=== PATIENT | female | born 1960 | race Caucasian/White ===

== ENCOUNTER → 2020-11-27 08:43 | Outpatient (CLI) | payer OTHER, SELFPAY ==
[2020-11-27 11:59] LABS: COVID19 -Nasal RAPID Negative (Negative)
== END ==
PROVIDERS: PCP Family Medicine; Visit Provider Physician Assistant
DX: Z20.822 Contact with and (suspected) exposure to COVID-19 (principal); Z01.812 Encounter for preprocedural laboratory examination
CPT/HCPCS: 87635

== ENCOUNTER 2020-11-29 06:11 | Inpatient (IN) | payer OTHER, SELFPAY ==
[2020-11-29] VITALS (18 sets, daily range): BP systolic 120–172; BP diastolic 68–94; PULSE 79–100; RESP 11–17; TEMP 36.3–37.4; O2SAT 90–100; BMI 40.3
[2020-11-29] MEDS: LACTATED RINGERS 1,000 ML 42 ML IV ×2 (07:20→09:12)
--- NOTE | 2020-11-29 07:39 | PM.PREOP ---
Pre-operative Note COVID-19 COVID-19 status: Negative Result date/Date tested (Pos, Neg/Pending): 11/27/20 Interval Note History & Physical reviewed/Exam performed by Physician: Yes Changes to H&P: No
[2020-11-29] MEDS: CEFAZOLIN 1 GM VIAL 2 GM IV ×3 (07:58→23:41)
--- NOTE | 2020-11-29 08:23 | SUR.OPER ---
Prone on spine table, head in foam head support, padded chest and pelvic supports, gel pad at knees, lower legs supported by pillows; nipples, genitalia and toes free of pressure, arms secured on foam padded arm boards at <90 degrees abduction. Tape over blanket at thigh secured to table.
[2020-11-29] MEDS: BUPIVACAINE 0.25% W/ EPI 30 ML VIAL INJ (08:33)
[2020-11-29] MEDS: BUPIVACAINE LIPOSOME 266 MG/20 ML VIAL INJ (08:34)
--- NOTE | 2020-11-29 11:08 | PC.NURSE ---
Day shift: Pt not on AC unit at this time.
--- NOTE | 2020-11-29 12:06 | DI.RAD.S_ITS ---
PROCEDURE: XR LUMBAR SPINE 2-3V INDICATIONS: L4-5, L5-S1 TLIF TECHNIQUE: 2 intraoperative fluoroscopic views of the lumbar spine were acquired. COMPARISON: None. FINDINGS: Intraoperative fluoroscopic images of lower lumbar spine shows transpedicular fusion at L4 through S1 levels with intervertebral spacer placement at L4-5 and L5-S1 levels. IMPRESSION: Fluoro guidance was provided intraoperatively for posterior fusion at L4 through S1 levels. Dictated by: Mario Barroso M.D. on 11/29/2020 at 13:37 Approved by: Mario Barroso M.D. on 11/29/2020 at 13:47
--- NOTE | 2020-11-29 12:24 | PM.OP.1 ---
Operative Date/Time/Diagnoses Date of procedure: 11/29/20 Time of procedure: 08:02 Pre-op diagnosis: 1. Hx of L4-5, L5-S1 laminectomy with residual spinal stenosis. 2. Lumbar spondylolisthesis 3. Spinal stenosis with neurogenic claudication Post-op diagnosis: same Procedure & Clinicians Procedure: 1. L4-5, L5-S1 Postero-lateral and posterior interbody fusion 2. L4-5, L5-S1 interbody cage placement. 3. L4-5, L5-S1 decompressive laminectomy with bilateral facetecomies 4. L4-5, L5-S1 Posterior segmental instrumentation 5. [place] of bone marrow from iliac crest 6. Utilization of microsurgical technique and operating microscope Same procedure as scheduled: Yes Indications: Patient has been having chronic back pain and worsening lumbar radiculopathy. Patient had previous laminectomy with worsening lower extremity pain weakness and numbness as well as back pain. Patient failed multiple conservative management with worsening pain weakness and numbness in her lower extremity. Patient has been having difficulty performing activity of daily living. After discussing risks benefits of treatment options, patient elected proceed with surgery. Surgeon: Hermila Sanchez Liquor Establishment Manager: Yanick Ryan Click Yes if Unassisted: No Anesthesia Type: General Operative Notes Closure Type: primary Specimen(s): none sent Prosthetic devices, grafts, tissues, transplants, or devices: Globus revolve screws, Rise cages Applied: catheter Estimated Blood Loss (mL): 100 Blood products transfused: none Procedure in detail: Patient was seen in the preoperative area. Risks and benefits of the surgery was discussed with the patient. Informed consent was obtained from the patient and placed in the chart. Surgical site was marked. Patient was taken to the operative room. General anesthesia was administered. Prophylactic antibiotic was given to the patient less than 30 min before the incision was made. Patient was placed into a prone position on the Randall table. Patient's back was then prepped and draped in the sterile fashion. Time-out was performed at this time. Using AP and lateral C-arm imaging the interval between L4-S1 was identified and marked on patient's back. A 2 inch incision 2 in from midline was made on the left side first. The fascia was incised in line with skin incision. Globus MARS retractors was placed inside the incision and docked onto the L4 and L5 lamina. Using microsurgical technique and operating microscope, a L4 and L5 laminectomy and L4-5 L5-S1 facetectomy was performed using a Kerrison rongeur. During the process of decompression more than 75% of bilateral L4-5 L5-S1 facets were removed in order to decompress the spinal canal and the lateral recess. The L4-5 L5-S1 level was grossly unstable after the decompression was completed and requiring the fusion procedure. Patient was also found to have an excellent amount of epidural scarring from previous laminectomy site. Decompression was performed in order to decompress the neurologic structures at both L4-5 L5-S1 level. The disc space at L4-5, L5-S1 was identified. And a total diskectomy was performed at L4-5, L5-S1 level. The endplates were decorticated using a rasp and shaver. The total diskectomy and decortication was performed at L4-5, L5-S1 level in order to to accomplish a L4-5, L5-S1 fusion. The local bone from the laminectomy and facetectomy was saved for local bone grafting. After the total diskectomy and decortication was completed, Trifecta bone graft material was combined with local bone that was harvested earlier. At this time, a separate skin is incision was made over the iliac crest. A Jamshidi needle was inserted into the iliac crest through a separate skin incision. 5 cc of bone marrow aspiration was obtained through the separate skin incision using a Jamshidi needle from the iliac crest. The bone marrow aspiration was combined with local bone and the Trifecta bone grafting material. The bone grafting material was placed into the L4-5, L5-S1 interbody space along with two cages, one expandable cage at each level. The cages were expanded to their maximum height using the torque limiting screwdriver. At this time a mirror image incision was made on the right side. The fascia was incised in line with the skin incision. Globus MARS retractor was inserted and docked onto the L4-5, L5-S1 posterolateral gutter. Using the power drill, posterior-lateral decortication was performed at L4-5, L5-S1 level until bleeding cortical bone was identified. The remaining bone grafting material was placed into the L4-5 L5-S1 posterior lateral gutter he order to accomplish posterolateral fusion at the L4-5 L5-S1 levels. Using the double C-arm technique, pedicle screws were placed into the L4, L5, S1 pedicles bilaterally. This was done by placing the Jamshidi needle into the pedicles, then placing the guidewires over the Jamshidi needle, and finally placing the cannulated screws over the guidewires bilaterally. After the pedicle screws were placed, 2 titanium rods was locked into the heads of the pedicle screws using locking caps and torque limiting screwdriver. Total 6 pedicles screws were placed. After all the hardware was placed, and confirmed with AP and lateral C-arm imaging, the wound was then irrigated with sterile normal saline and packed with Ray-Joyce gauze for 3 min to accomplish hemostasis. After the gauze was removed the deep fascia was closed with #1 Vicryl suture. The subcutaneous layer was closed with 2-0 Vicryl. The skin was closed with skin caitlyn. Patient tolerated the procedure well. There were no complications. Complications: none Post-operative Condition: stable Disposition: PACU Plan for aftercare: Admit to inpatient hospital
[2020-11-29] MEDS: OXYCODONE/ACETAMINOPHEN 5/325 TABLET 1 TAB PO ×2 (12:45→13:15)
[2020-11-29] MEDS: fentaNYL 100 MCG/2 ML INJ IV (12:50)
[2020-11-29] MEDS: HYDROMORPHONE 2 MG INJ IV ×2 (12:57→13:20)
--- NOTE | 2020-11-29 13:27 | SUR.PHASEI ---
Called Ulisses [phone] with pt update and room assignment. Ulisses was very pleasant and grateful. States he is one hour away but will visit pt in 203 when he arrives.
--- NOTE | 2020-11-29 14:03 | PC.NURSE ---
Day shift: Pt on AC unit from PACU at approx 1355. She is A&Ox4. VS WNL. 2L NC 95%. Reports back pain 02/22. CMS intact. Good cap refill and PPP. Oriented to room and call light. Back dressing is CDI. Agrees to not get OOB w/o help from staff. Will medicate for pain per MAR at this time. Bed alarm is on and call light in reach. Will continue w/ plan of care.
[2020-11-29] MEDS: hydrOXYzine pamoate 25 MG CAPSULE PO (14:13)
[2020-11-29] MEDS: OXYCODONE IR 5 MG TABLET 10 MG PO ×2 (14:13→20:45)
[2020-11-29] MEDS: SODIUM CHLORIDE 0.9% 1,000 ML 100 ML IV (14:27)
[2020-11-29] MEDS: HYDROMORPHONE 0.5 MG INJ IV (14:36)
--- NOTE | 2020-11-29 16:54 | PT.IIE ---
Current Diagnoses Spondylolisthesis, lumbar region (11/29/20) Spinal stenosis, lumbar region with neurogenic claudication (11/29/20) Postlaminectomy syndrome, not elsewhere classified (11/29/20) Surgery Performed Operation Date: 11/29/20 07:45 Actual Procedures p L4-5, L5-S1 TLIF w/posterior instrumentation(Not Applicable) - Hermila Sanchez MD Physical Therapy Inpatient Evaluation/Re-Eval M1 PT/OT-IP Prior Functional Status Start: 11/29/20 16:14 Freq: NEEDED Status: Active Protocol: Document 11/29/20 16:54 AW (Rec: 11/29/20 17:20 AW [id number]) Medical Review Prior Functional Status Medical History Reviewed Yes Communication WNL. Pt is an effective verbal communicator. Mobility and Gait Independent without AD. Pt spends long hours on her feet at work. It hurts whether I move or not so I just move. Activities of Daily Living and IADL's Independent. Pt lives with her friend, Ulisses. They share housework. Both drive. Social History Household Members friend(s) Living Arrangements House Number of Floors (Floors) One Floor Number of Stairs To Enter/Railing? 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 She lives in [place] with her friend, Ulisses, who will be available and able to assist as needed. M2 PT-IP Current Condition Start: 11/29/20 16:14 Freq: NEEDED Status: Active Protocol: Document 11/29/20 16:54 AW (Rec: 11/29/20 17:20 AW [id number]) Physical Therapy Current Condition Current Condition Evaluation Date 11/29/20 Treatment Diagnosis s/p L4-S1 TLIF; difficulty in walking Onset Date 11/29/20 Precautions Lumbar Precautions Log Roll,No Twisting,Limit Bending,Lifting Restriction of 10 lbs,Gait Belt above Incisional Area M3 PT-IP Subjective Start: 11/29/20 16:14 Freq: NEEDED Status: Active Protocol: Document 11/29/20 16:54 AW (Rec: 11/29/20 17:20 AW [id number]) Subjective Physical Therapy Visit Type Type Initial Evaluation Visit Start Time 16:30 Visit Stop Time 16:54 Total Visit Minutes 24 Notes Pt's friend, Ulisses, was present throughout Physical Therapy Visit Comments Patient Comments Pt is willing to participate with PT Patient Goals Return to work in 8 weeks Therapy Pain Assessment Pain When Pain Assessed During Mobility Pain Present Pain Present Pain Reported Location low back Intensity 2 Scale Used Numeric (0 - 10) Pain Management Techniques Re-positioning,Timing of Activity with Medications M4 PT-IP Mobility and Gait Start: 11/29/20 16:14 Freq: NEEDED Status: Active Protocol: Document 11/29/20 16:54 AW (Rec: 11/29/20 17:20 AW [id number]) PT-Bed Mobility Assessment Rolling Type of Rolling Log Rolling,Roll to Left Level of Assist Minimal Assistance,1 Person Assistance Supine to Sit Supine to Sit Maximum Assistance,1 Person Assistance Scooting Scooting to Edge of Bed Standby Assistance PT-Transfer Assessment Sit to and From Stand Sit to and from Stand Minimal Assistance,1 Person Assistance,Use of Upper Extremities Equipment Transfer Assistive Device Gait Belt,Front Wheeled Walker Orthotic/Prosthetic Devices or Brace: No Transfers Transfer Destination Chair Transfer Technique Stand Step Pivot Transfer Ability Level of Assist Contact Guard Assistance Comments Mobility Comments Pt was sitting up in bed as PT arrived. BP 155/85 HR 96 SpO2 96% on 1L/min. Pt log rolled to her right side min assist and transitioned from SL to sit max assist. She scooted to EOB and sat without complaint . She stood from the bed min assist and was able to ambulate slowly around the bed to the chair ~15 feet with FWW CGA. She transferred to the chair CGA and then stood from the chair min A x 1 before sitting one last time. She was left with INDUSTRIAL MANUFACTURING TECHNICIAN attening . BP was 151/77 HR 95 SpO2 91% on room air. Gait Assessment Gait Gait Assistance Required: Contact Guard Assist Distance (Feet) 15 Assistive Devices Assistive Device Gait Belt,Front Wheeled Walker Orthotic/Prosthetic Devices or Brace: No Gait Deviations General Gait Pattern Antalgic,Decreased Stride Length,Decreased Feet Clearance,Flexed Trunk,Step-to Gait Factors Limiting Gait Function Factors Limiting Gait Function Decreased Activity Tolerance, Decreased Sensation,Decreased Strength,Limited Range of Motion,Pain,Poor Balance Comments Gait Comments Pt had mild difficulty advancing the LLE but managed with no more than CGA and cues for weight shifting. Stair Climbing Assessment Comments Stair Climbing Comments Not assessed. PT-Balance Assessment Sitting Balance and Reactions Static Sitting Balance Ability Good Dynamic Sitting Balance Ability Good Standing Balance and Reactions Static Standing Balance Ability Good Dynamic Standing Balance Ability Fair Device Used FWW M5 PT-IP Objective Assessments Start: 11/29/20 16:14 Freq: NEEDED Status: Active Protocol: Document 11/29/20 16:54 AW (Rec: 11/29/20 17:20 AW [id number]) Orientation Orientation/Cognition Level of Alertness Alert Orientation Name,Day of Week,Place, Situation Language Function Ability No Deficits Noted Safety Awareness Understands Safety Issues Memory Description No Deficits Noted Comments Pt able to recall 3/3 precautions without prompts. Gross Range of Motion Lower Extremity ROM Assessment Within Functional Limits Strength Lower Extremity Strength Assessment Bilaterally Impaired Comments Strength Comments RLE 4/5 LLE 4-/5 Sensation Assessment Sensation Gross Sensation Right LE Impaired,Left LE Impaired Light Touch Impaired Sensation Description Numbness Comments Sensation Comments Pt reported numb anterior right thigh and dull light touch sensation on dorsal surfaces of both feet. Muscle Tone Muscle Tone WNL Yes M6 PT-IP Treatment Start: 11/29/20 16:14 Freq: NEEDED Status: Active Protocol: Document 11/29/20 16:54 AW (Rec: 11/29/20 17:20 AW [id number]) Physical Therapy Treatment Education Education Provided Precautions,Weight Bearing Status,Post-Op Packet,Safety Other Treatments Other Treatment Performed Educated pt on PT plan of care , weightbearing status, post op precautions, and rationale for selection of an assistive device. M7 PT-IP Assessment and Plan Start: 11/29/20 16:14 Freq: NEEDED Status: Active Protocol: Document 11/29/20 16:54 AW (Rec: 11/29/20 17:20 AW [id number]) PT Summary Assessment and Plan Potential Rehabilitation Potential Good Status of Condition at Evaluation Evolving Summary Impairments Pain,ROM,Strength,Balance, Sensation,Bed Mobility, Transfers,Gait,Activity Tolerance Assessment Summary Edel is a 60 yo woman seen for PT evaluation on POD0 following L4-S1 TLIF. She is independent in all regards at baseline. 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 On evaluation, pt required up to max assist with bed mobility, min assist for sit to stand, and CGA for ambulation with FWW and transfers. PT anticipates she will progress during her stay and be safe to discharge home with assist once medically cleared. Pt will need to clear stairs prior to discharge. Goals Bed Mobility Goal Standby Assistance Transfer Goal Standby Assistance,Front Wheeled Walker Gait Goal Standby Assistance,Front Wheel Walker Gait Distance 100 Other Goals - up/down 2 steps with L rail ascending SBA LTG: improve ambulation to 100 feet without AD SBA Days to Meet Goals 5 Frequency of Treatment Frequency Of Treatment Twice a Day Treatment Plan Physical Therapy Treatment Plan Bed Mobility Training,Transfer Training,Gait Training, Therapeutic Exercise,Balance Retraining,Post Op Education, Discharge Planning,Hot or Cold Pack,Neuromuscular Re-ed Other Recommendations and Next Treatment review precautions; progress Focus gait with FWW; stairs when able Precautions Lumbar Precautions Log Roll,No Twisting,Limit Bending,Lifting Restriction of 10 lbs,Gait Belt above Incisional Area Recommendations To Nursing Amount of Assist Needed 1 Person Assist Discharge Recommendations PT Discharge Recommendations Home with Assistance Equipment Needed for Home Before may need FWW Discharge Transportation Needs at Discharge Private Vehicle
--- NOTE | 2020-11-29 17:52 | PC.NURSE ---
Addendum entered by Mely Houston R.N. 11/29/20 21:42: Vertical incision on either side of midline, both dressings saturated with serosanguinous drainage. Dressings removed. Incisions stapled, noted to be approximated, pink. Some peripheral bruising. Alevyn (non-adherent, border) dressings applied x2. Patient tolerated well. Original Note: Report received, care assumed 1530. A&Ox3. Pain 10/23, reports this is tolerable. Denies nausea, verbalizes that she's hungry. Rainey catheter, not yet OOB post-op. Pt. up in chair after working with PT. Pain still under control. Oxygen sats 89-91% on RA. Placed back on 1LNC.
[2020-11-29] MEDS: SENNOSIDES 8.6 MG TABLET 17.2 MG PO (20:33)
[2020-11-29] MEDS: ATORVASTATIN 20 MG TABLET 10 MG PO (20:33)
[2020-11-29] MEDS: DOCUSATE 100 MG CAPSULE PO (20:33)
[2020-11-29] MEDS: TRAZODONE 50 MG TABLET PO (20:38)
[2020-11-29] MEDS: ACETAMINOPHEN 325 MG TABLET 650 MG PO (23:50)
--- NOTE | 2020-11-30 00:51 | PC.NURSE ---
Patient resting in bed, states pain is tolerable at 4/10, IV NS discontinued at 0040 since patient is drinking fluids. Patient states she has some numbness in Left thigh and chen.
[2020-11-30] MEDS: OXYCODONE IR 5 MG TABLET 10 MG PO ×6 (03:07→23:49)
[2020-11-30 03:08] VITALS: BP 128/54; PULSE 87; RESP 16; TEMP 36.6; O2SAT 93
[2020-11-30] MEDS: PANTOPRAZOLE DR 20 MG TABLET PO (05:38)
--- NOTE | 2020-11-30 07:24 | P.PN_ITS ---
Subjective Subjective Date Patient Seen: 11/30/20 Time Patient Seen: 07:24 Interval history: Patient states she is doing well overall and rates her pain a 5/10 in intensity. At this time the patient denies fever, chills, nausea, chest pain, shortness of breath, or urinary retention. Patient reports good sensation throughout the bilateral lower extremities. She explains that she is looking for to working with physical therapy today. Exam Vital Signs (past 8 hours): - 11/29/20 23:40 11/30/20 03:08 Temperature 98.8 F 97.9 F Pulse Rate 86 87 Respiratory Rate 16 16 Blood Pressure 120/68 128/54 L Pulse Oximetry 94 93 Oxygen Delivery Method Room Air Oxygen Flow Rate 0 Narrative Exam Narrative: Pleasant 60-year-old female postop day 1. Patient is resting comfortably in bed, is in no acute distress, is alert and oriented x3. Skin is warm dry, and the skin surrounding the incision site is free of erythema, warmth, induration, or discharge. Dressing over the incision sign is intact and is clean and dry. Good sensation appreciated throughout the bilateral lower extremities to light touch, although the patient does describe a ?tingling? sensation when her left anterior tibia and thigh are touched. Hip flexion performed bilaterally without difficulty or discomfort. Ankle dorsiflexion, plantar flexion, eversion, inversion performed bilaterally without difficulty or discomfort. Palpable pulses appreciated, capillary refill less than 2 seconds. Calves are soft nontender, negative Homans sign. No other signs of DVT appreciated at this time. Const General: cooperative, healthy appearing and comfortable Resp Effort & Inspection: normal respiratory effort and able to speak in complete sentences Skin General: no rashes or lesions noted [facility] Social History household members: friend(s) Smoking Status: Former smoker alcohol intake: former Assessment & Plan Post-op Postoperative Procedures: Procedures Operation Date: 11/29/20 07:45 Actual Procedures Side Surgeon p L4-5, L5-S1 TLIF w/posterior instrumentation Not Applicable Hermila Sanchez MD Postoperative day: 1 Postoperative status: doing well Postoperative plan: ambulate Postoperative plan narrative: Patient is to continue working with physical therapy on ambulation with the assistance of a front wheeled walker. Catheter is to be removed today. Patient is to continue her current pain management regimen as it is adequately controlling her pain level at this time. Dressing is to be changed as needed if it becomes soiled or damaged. Discharge home likely today or tomorrow pending work with PT. Time Spent With Patient Time with patient: 15-24 minutes Quality VTE Deep Vein Thrombosis/Pulmonary Embolism Present on Admission: No
[2020-11-30 07:37] VITALS: O2SAT 98
[2020-11-30 07:45] VITALS: BP 150/76; PULSE 84; RESP 17; TEMP 37.1; O2SAT 96
[2020-11-30] MEDS: DOCUSATE 100 MG CAPSULE PO ×2 (08:06→20:55)
[2020-11-30] MEDS: METOPROLOL ER 50 MG TABLET PO (08:06)
[2020-11-30] MEDS: hydroCHLOROthiazide 25 MG TABLET 12.5 MG PO (08:06)
[2020-11-30] MEDS: OXYCODONE ER 10 MG TAB PO ×2 (08:08→20:24)
--- NOTE | 2020-11-30 10:34 | OT.IP.EVAL ---
Current Diagnoses Spondylolisthesis, lumbar region (11/29/20) Spinal stenosis, lumbar region with neurogenic claudication (11/29/20) Postlaminectomy syndrome, not elsewhere classified (11/29/20) Surgery Performed Operation Date: 11/29/20 07:45 Actual Procedures p L4-5, L5-S1 TLIF w/posterior instrumentation(Not Applicable) - Hermila Sanchez MD Occupational Therapy Inpatient Evaluation/Re-Eval M1 PT/OT-IP Prior Functional Status Start: 11/29/20 16:14 Freq: NEEDED Status: Active Protocol: Document 11/30/20 09:55 [facility] (Rec: 11/30/20 13:16 [facility] [id number]) Medical Review Prior Functional Status Medical History Reviewed Yes Communication WNL. Pt is an effective verbal communicator. Mobility and Gait Independent without AD. Pt spends long hours on her feet at work. It hurts whether I move or not so I just move. Activities of Daily Living and IADL's Independent. Pt lives with her friend/ Ulisses. They share housework. Both drive. Pt states takes her increased time to do ADL and IADL needs due to her back pain. Social History Household Members friend(s) Living Arrangements House Number of Floors (Floors) One Floor Number of Stairs To Enter/Railing? 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 She lives in [place] with her friend, Ulisses, who will be available and able to assist as needed. M2 OT-IP Current Condition Start: 11/30/20 12:59 Freq: Status: Active Protocol: Document 11/30/20 09:55 [facility] (Rec: 11/30/20 13:16 [facility] [id number]) Occupational Therapy Current Condition Current Condition Evaluation Date 11/30/20 Treatment Diagnosis S/p L4-S1 TLIF Post Operative Precautions Lumbar Precautions Log Roll,No Twisting,Limit Bending,Lifting Restriction of 10 lbs,Gait Belt above Incisional Area M3 OT- IP Subjective and Pain Start: 11/30/20 12:59 Freq: Status: Active Protocol: Document 11/30/20 09:55 [facility] (Rec: 11/30/20 13:16 [facility] [id number]) OT- Subjective Occupational Therapy Visit Type Type Initial Evaluation Visit Start Time 09:55 Visit Stop Time 10:34 Total Visit Minutes 39 Occupational Therapy Visit Comments Patient Comments Pt agreed to get up and use the bathroom. Pt states felt hot after OT session and notified nursing that pt wanted her temperature checked . Patient/Caregiver Goals To go home. OT Pain Assessment Pain When Pain Assessed At Rest Pain Present Pain Present Pain Reported Location low back Intensity 4 Scale Used Numeric (0 - 10) M4 OT- IP ADL's Start: 11/30/20 12:59 Freq: Status: Active Protocol: Document 11/30/20 09:55 [facility] (Rec: 11/30/20 13:16 [facility] [id number]) OT ADL-Grooming General Evaluation Grooming Ability Standby Assistance Areas Needing Assistance Retrieving/Set-up of Grooming Items OT ADL-Oral Care General Eval Oral Care Ability Standby Assistance Comments Oral Care Comments Pt needing initial education to either spit into a cup versus hinge at her hips to lean to spit into the sink to best follow her back precautions. OT ADL-Dressing General Eval Lower Body Dressing Ability Standby Assistance,Maximum Assistance Comments OT Dressing Comments Able to show pt LB dressing equipment so pt best able to follow her back precautions for LB dressing needs. Pt states has all the LB dressing equipment from a prior surgery. OT ADL-Toileting General Evaluation Toileting Ability Standby Assistance,Moderate Assistance Areas Needing Assistance Perform Perineal Hygiene Comments OT Toileting Comments Pt able to wipe from the front but needing assist for the back. Suggested pt to obtain a toilet paper aid, otherwise she states her is able to assist her. OT ADL-Bathing Comments OT Bathing Comments Pt too tired to try today, therefore to do showering in AM tomorrow. M5 OT- IP IADL's Start: 11/30/20 12:59 Freq: Status: Active Protocol: Document 11/30/20 09:55 [facility] (Rec: 11/30/20 13:16 [facility] [id number]) OT-Instrumental Activities of Daily Living Home Safety Awareness Awareness of Need for Assistance at Home Good Awareness Home Safety Comments Pt slightly groggy and that her will be able to assist her for all her needs at home. M6 OT- IP Functional Cognition Start: 11/30/20 12:59 Freq: Status: Active Protocol: Document 11/30/20 09:55 [facility] (Rec: 11/30/20 13:16 [facility] [id number]) Cognitive Factors Limiting Selfcare Function Cognitive Ability Level of Alertness Alert Patient Orientation Name,Place,Situation Attention Span Ability Capable of Focused Attention, Capable of Sustained Attention Ability to Follow Commands Able to Follow One Step Commands Safety Awareness Decreased Recall of Precautions,Decreased Ability to Apply Precautions Cognitive Comments Cognitive Assessment Comments Pt needing reminders to back precautions, to be sure to push up from the bed when coming to stand, and to keep the FWW close to her when up on her feet. OT- Vision and Hearing OT- Hearing Assessment OT- Hearing Assessment WFL OT- Vision Assessment Visual Acuity Glasses All The Time M7 OT- IP Mobility and Balance Start: 11/30/20 12:59 Freq: Status: Active Protocol: Document 11/30/20 09:55 [facility] (Rec: 11/30/20 13:16 [facility] [id number]) OT- Bed Mobility Assessment Rolling Type of Rolling Roll to Left Level of Assistance Minimal Assistance Supine to Sit Supine to Sit Assist Moderate Assistance,1 Person Assistance OT-Transfer Assessment Sit to and From Stand Sit to and from Stand Moderate Assistance,Maximum Assistance,1 Person Assistance Transfers Transfer Ability Minimal Assistance Technique Transfer Destination Bed,Chair,Toilet Transfer Technique Stand Step Pivot Devices Transfer Assistive Devices Gait Belt,Front Wheeled Walker Comments Mobility Comments MODA to help get her trunk upright from sidelying. Pt states can sleep in her recliner if needed. Pt from MODA to MAX A to stand with FWW. Pt needing cues to straighten her legs when coming to stand. Pt states her sister to loan her a FWW. OT- Balance Assessment Sitting Balance and Reactions Static Sitting Balance Ability Good Dynamic Sitting Balance Ability Fair Standing Balance and Reactions Static Standing Balance Ability Fair M8 OT- IP Objective Assessments Start: 11/30/20 12:59 Freq: Status: Active Protocol: Document 11/30/20 09:55 [facility] (Rec: 11/30/20 13:16 [facility] [id number]) OT Gross Range of Motion Upper Extremity Range of Motion Assessment Within Functional Limits OT-Muscle Tone Assessment Muscle Tone WNL Yes M9 OT- IP Assessment and Plan Start: 11/30/20 12:59 Freq: Status: Active Protocol: Document 11/30/20 09:55 [facility] (Rec: 11/30/20 13:16 [facility] [id number]) OT Summary Assessment and Plan Potential Rehabilitation Potential Good Analytic Complexity at Evaluation Low Summary OT Impairments Pain,Balance,Functional Cognition,Functional Mobility, Dressing,Toileting,Bathing, Toilet Transfers,Shower Transfers,Activity Tolerance Progress Towards Goals Slow Progress due to Pain Assessment Summary Pt low complexity and main barriers are steps, needing reminders to incorporate her back precautions, assist for bed mobility and transitions, and ADL's. Pt looking to go home when medically stable and after able to complete caregiver training. Goals Grooming Goal Independent Dressing Goal Independent Toileting Goal Independent Bathing Goal Independent Toilet Transfer Goal Independent Shower Transfer Goal Independent Patient/Caregiver Education Goal Demonstrate Post-Op Precautions,Caregiver Independent Assisting Patient Days to Meet Goals 7 Frequency of Treatment Frequency Of Treatment Once a Day Treatment Plan OT Treatment Plan ADL Training,Functional Cognition Training,Functional Mobility,Patient/Family Education,Discharge Planning Discharge Recommendations OT Discharge Recommendations Home with Assistance Home Equipment Needs FWW, BSC Transportation Needs at Discharge Private Vehicle
--- NOTE | 2020-11-30 11:30 | PT.IPTN ---
Current Diagnoses Spondylolisthesis, lumbar region (11/29/20) Spinal stenosis, lumbar region with neurogenic claudication (11/29/20) Postlaminectomy syndrome, not elsewhere classified (11/29/20) Surgery Performed Operation Date: 11/29/20 07:45 Actual Procedures p L4-5, L5-S1 TLIF w/posterior instrumentation(Not Applicable) - Hermila Sanchez MD Physical Therapy Treatment Note M2 PT-IP Current Condition Start: 11/29/20 16:14 Freq: NEEDED Status: Active Protocol: Document 11/29/20 16:54 AW (Rec: 11/29/20 17:20 AW [id number]) Physical Therapy Current Condition Current Condition Evaluation Date 11/29/20 Treatment Diagnosis s/p L4-S1 TLIF; difficulty in walking Onset Date 11/29/20 Precautions Lumbar Precautions Log Roll,No Twisting,Limit Bending,Lifting Restriction of 10 lbs,Gait Belt above Incisional Area M3 PT-IP Subjective Start: 11/29/20 16:14 Freq: NEEDED Status: Active Protocol: Document 11/30/20 11:30 AW (Rec: 11/30/20 12:21 AW [id number]) Subjective Physical Therapy Visit Type Type Treatment Note Visit Start Time 11:05 Visit Stop Time 11:30 Total Visit Minutes 25 Notes Pt is tired from working with OT this morning. Physical Therapy Visit Comments Patient Comments Pt is willing to participate with PT Therapy Pain Assessment Pain When Pain Assessed During Mobility Pain Present Pain Present Pain Reported Location low back Intensity 8 Scale Used Numeric (0 - 10) Pain Management Techniques Re-positioning,Timing of Activity with Medications M4 PT-IP Mobility and Gait Start: 11/29/20 16:14 Freq: NEEDED Status: Active Protocol: Document 11/30/20 11:30 AW (Rec: 11/30/20 12:21 AW [id number]) PT-Transfer Assessment Sit to and From Stand Sit to and from Stand Maximum Assistance,1 Person Assistance,Use of Upper Extremities Equipment Transfer Assistive Device Gait Belt,Front Wheeled Walker Orthotic/Prosthetic Devices or Brace: No Transfers Transfer Destination Chair Transfer Ability Level of Assist Minimal Assistance,1 Person Assistance,Use of Upper Extremities Comments Mobility Comments Pt was sitting up in the chair , trying to rest, as PT arrived. BP 135/68 HR 84. She agreed to get up for PT. She took extra time with all mobility, scooting forward on the chair with good attention to precautions. She needed two attempts and max assist and tactile cues for quad activation to stand from the chair, complaining of increased pain. She stood with FWW for support and ambulated a total of 40 feet slowly and with three standing rest/deep breathing breaks to manage pain. She returned to the room and needed min assist to transfer back to the chair. She was able to scoot back on the chair. She was left with ice applied to her low back, legs elevated, call light and all needs in reach. Gait Assessment Gait Gait Assistance Required: Contact Guard Assist,1 Person Assist Distance (Feet) 40 Able to Maintain Weight Bearing Status Yes During Gait Assistive Devices Assistive Device Gait Belt,Front Wheeled Walker Orthotic/Prosthetic Devices or Brace: No Gait Deviations General Gait Pattern Antalgic,Decreased Stride Length,Decreased Feet Clearance,Flexed Trunk,Step-to Gait Factors Limiting Gait Function Factors Limiting Gait Function Decreased Activity Tolerance, Decreased Sensation,Decreased Strength,Limited Range of Motion,Pain,Poor Balance Comments Gait Comments Pt feels weaker on the right side this date. Stair Climbing Assessment Comments Stair Climbing Comments Pt not ready for stair training at this time. PT-Balance Assessment Sitting Balance and Reactions Static Sitting Balance Ability Good Dynamic Sitting Balance Ability Good Standing Balance and Reactions Static Standing Balance Ability Fair Dynamic Standing Balance Ability Fair Device Used FWW M5 PT-IP Objective Assessments Start: 11/29/20 16:14 Freq: NEEDED Status: Active Protocol: Document 11/29/20 16:54 AW (Rec: 11/29/20 17:20 AW [id number]) Orientation Orientation/Cognition Level of Alertness Alert Orientation Name,Day of Week,Place, Situation Language Function Ability No Deficits Noted Safety Awareness Understands Safety Issues Memory Description No Deficits Noted Comments Pt able to recall 3/3 precautions without prompts. Gross Range of Motion Lower Extremity ROM Assessment Within Functional Limits Strength Lower Extremity Strength Assessment Bilaterally Impaired Comments Strength Comments RLE 4/5 LLE 4-/5 Sensation Assessment Sensation Gross Sensation Right LE Impaired,Left LE Impaired Light Touch Impaired Sensation Description Numbness Comments Sensation Comments Pt reported numb anterior right thigh and dull light touch sensation on dorsal surfaces of both feet. Muscle Tone Muscle Tone WNL Yes M6 PT-IP Treatment Start: 11/29/20 16:14 Freq: NEEDED Status: Active Protocol: Document 11/30/20 11:30 AW (Rec: 11/30/20 12:21 AW [id number]) Physical Therapy Treatment Education Education Provided Precautions,Weight Bearing Status,Safety Other Treatments Other Treatment Performed Pt able to recall all precautions. M7 PT-IP Assessment and Plan Start: 11/29/20 16:14 Freq: NEEDED Status: Active Protocol: Document 11/30/20 11:30 AW (Rec: 11/30/20 12:21 AW [id number]) PT Summary Assessment and Plan Summary Impairments Pain,ROM,Strength,Balance, Sensation,Bed Mobility, Transfers,Gait,Activity Tolerance Progress Towards Goals Slow Progress due to Pain Assessment Summary Edel's mobility was affected by increased pain this date. She required more assist with mobility compared with evaluation and was not yet ready for stair training. In spite of this, PT anticipates she will progress and be able to discharge home with assist once medically cleared. Pt states she has access to a 4WW at home. Will assess gait with 4WW as appropriate. Goals Bed Mobility Goal Standby Assistance Transfer Goal Standby Assistance,Front Wheeled Walker Gait Goal Standby Assistance,Front Wheel Walker Gait Distance 100 Other Goals - up/down 2 steps with L rail ascending SBA LTG: improve ambulation to 100 feet without AD SBA Days to Meet Goals 5 Frequency of Treatment Frequency Of Treatment Twice a Day Treatment Plan Physical Therapy Treatment Plan Bed Mobility Training,Transfer Training,Gait Training, Therapeutic Exercise,Balance Retraining,Post Op Education, Discharge Planning,Hot or Cold Pack,Neuromuscular Re-ed Other Recommendations and Next Treatment review precautions; progress Focus gait with FWW; assess gait with 4WW; stairs when able; initiate caregiver training if present or plan for tomorrow Precautions Lumbar Precautions Log Roll,No Twisting,Limit Bending,Lifting Restriction of 10 lbs,Gait Belt above Incisional Area Recommendations To Nursing Amount of Assist Needed 1 Person Assist Discharge Recommendations PT Discharge Recommendations Home with Assistance Equipment Needed for Home Before may need FWW Discharge Transportation Needs at Discharge Private Vehicle
[2020-11-30 11:35] VITALS: BP 154/75; PULSE 85; RESP 16; TEMP 37.2
--- NOTE | 2020-11-30 14:20 | PT.IPTN ---
Current Diagnoses Spondylolisthesis, lumbar region (11/29/20) Spinal stenosis, lumbar region with neurogenic claudication (11/29/20) Postlaminectomy syndrome, not elsewhere classified (11/29/20) Surgery Performed Operation Date: 11/29/20 07:45 Actual Procedures p L4-5, L5-S1 TLIF w/posterior instrumentation(Not Applicable) - Hermila Sanchez MD Physical Therapy Treatment Note M2 PT-IP Current Condition Start: 11/29/20 16:14 Freq: NEEDED Status: Active Protocol: Document 11/29/20 16:54 AW (Rec: 11/29/20 17:20 AW [id number]) Physical Therapy Current Condition Current Condition Evaluation Date 11/29/20 Treatment Diagnosis s/p L4-S1 TLIF; difficulty in walking Onset Date 11/29/20 Precautions Lumbar Precautions Log Roll,No Twisting,Limit Bending,Lifting Restriction of 10 lbs,Gait Belt above Incisional Area M3 PT-IP Subjective Start: 11/29/20 16:14 Freq: NEEDED Status: Active Protocol: Document 11/30/20 14:20 AB (Rec: 11/30/20 16:51 AB [id number]) Subjective Physical Therapy Visit Type Type Treatment Note Visit Start Time 14:20 Visit Stop Time 15:15 Total Visit Minutes 55 Number of HOME CARE ATTENDANT Visits 0 Physical Therapy Visit Comments Patient Comments pt is agreeable to do PT Therapy Pain Assessment Pain When Pain Assessed At Rest Pain Present Pain Present Pain Reported Location low back Intensity 5 Scale Used Numeric (0 - 10) Pain Management Techniques Apply Cold,Distraction, Modification of Treatment,Re- positioning,Timing of Activity with Medications M4 PT-IP Mobility and Gait Start: 11/29/20 16:14 Freq: NEEDED Status: Active Protocol: Document 11/30/20 14:20 AB (Rec: 11/30/20 16:51 AB [id number]) PT-Bed Mobility Assessment Rolling Type of Rolling Log Rolling Level of Assist Minimal Assistance Supine to Sit Supine to Sit Maximum Assistance,1 Person Assistance Sit to Supine Sit to Supine Maximum Assistance,1 Person Assistance PT-Transfer Assessment Sit to and From Stand Sit to and from Stand Minimal Assistance,1 Person Assistance,Use of Upper Extremities Equipment Transfer Assistive Device Gait Belt,Front Wheeled Walker Orthotic/Prosthetic Devices or Brace: No Transfers Transfer Destination Bed,Chair Transfer Technique ambulated using FWW Transfer Ability Level of Assist Contact Guard Assistance,1 Person Assistance,Use of Upper Extremities Comments Mobility Comments pt sitting on chair. agreeable to do PT. completed sit to stand min A and cues. instructed pt to sit back on chair. educated on sit to stand technique. completed sit <>stand x 3 reps and cues CGA to min A. ambulated in room using FWW 20 ft CGA. pt rested. spouse arrived and agreed to do caregiver training. educated spouse on how to use safety belt and how to assist pt. spouse was able to put safety belt on pt but needs cues. assisted pt with sit to stand and ambulated with pt to the stairs using FWW SBA to CGA. educated pt on how to do stairs and spouse on how to assist pt. spouse was able to assist pt with stairs min A. continues to require cues on how to assist. pt ambulated back to the room using fWW SBA to CGA. completed sit<>supine max A. cued for log roll. instructed spouse on how to assist pt. pt requested to sit up on chair and ambulated back to chair using FWW SBA to CGA. positioned pt on chair. spouse agreed to another caregiver training tomorrow at 9 am. Gait Assessment Gait Distance (Feet) 100 Able to Maintain Weight Bearing Status Yes During Gait Assistive Devices Assistive Device Gait Belt,Front Wheeled Walker Orthotic/Prosthetic Devices or Brace: No Gait Deviations General Gait Pattern Decreased Stride Length, Decreased Feet Clearance Factors Limiting Gait Function Factors Limiting Gait Function Decreased Activity Tolerance, Decreased Strength,Limited Range of Motion,Pain,Poor Balance,Poor Safety Awareness Comments Gait Comments pls refer to mobility section for details Stair Climbing Assessment Evaluation Level of Assist On Stairs Minimal Assistance,1 Person Assistance Devices Stair Climbing Assistive Devices Left Railing Technique/Endurance Stair Climbing Direction Ascend and Descend Stair Climbing Technique Step to Step Number of Steps Climbed 3 Stair Climbing Set # Repetitions (reps) 1 M5 PT-IP Objective Assessments Start: 11/29/20 16:14 Freq: NEEDED Status: Active Protocol: Document 11/29/20 16:54 AW (Rec: 11/29/20 17:20 AW [id number]) Orientation Orientation/Cognition Level of Alertness Alert Orientation Name,Day of Week,Place, Situation Language Function Ability No Deficits Noted Safety Awareness Understands Safety Issues Memory Description No Deficits Noted Comments Pt able to recall 3/3 precautions without prompts. Gross Range of Motion Lower Extremity ROM Assessment Within Functional Limits Strength Lower Extremity Strength Assessment Bilaterally Impaired Comments Strength Comments RLE 4/5 LLE 4-/5 Sensation Assessment Sensation Gross Sensation Right LE Impaired,Left LE Impaired Light Touch Impaired Sensation Description Numbness Comments Sensation Comments Pt reported numb anterior right thigh and dull light touch sensation on dorsal surfaces of both feet. Muscle Tone Muscle Tone WNL Yes M6 PT-IP Treatment Start: 11/29/20 16:14 Freq: NEEDED Status: Active Protocol: Document 11/30/20 14:20 AB (Rec: 11/30/20 16:51 AB [id number]) Physical Therapy Treatment Education Education Provided Safety M7 PT-IP Assessment and Plan Start: 11/29/20 16:14 Freq: NEEDED Status: Active Protocol: Document 11/30/20 14:20 AB (Rec: 11/30/20 16:51 AB [id number]) PT Summary Assessment and Plan Potential Rehabilitation Potential Good Summary Impairments Pain,ROM,Strength,Balance, Coordination,Sensation,Tone, Cognition,Bed Mobility, Transfers,Gait,Activity Tolerance Progress Towards Goals Slow Progress due to Pain,Slow Progress due to Activity Tolerance Assessment Summary caregiver training conducted. spouse was able to assist pt but requires cues on how to assist. set up another caregiver training tomorrow at 9 am. will continue to assess progress. will also assess safety with 4WW use as pt does not have a FWW at home . Goals Bed Mobility Goal Standby Assistance Transfer Goal Standby Assistance,Front Wheeled Walker,Four Wheeled Walker Gait Goal Standby Assistance,Front Wheel Walker,Four Wheel Walker Gait Distance 150 Other Goals - up/down 2 steps with L rail ascending SBA Days to Meet Goals 5 Frequency of Treatment Frequency Of Treatment Twice a Day Treatment Plan Physical Therapy Treatment Plan Bed Mobility Training,Transfer Training,Gait Training, Therapeutic Exercise,Balance Retraining,Post Op Education, Discharge Planning,Hot or Cold Pack,Neuromuscular Re-ed Other Recommendations and Next Treatment caregiver training 9 am 12/01; Focus ambulation using 4WW Precautions Lumbar Precautions Log Roll,No Twisting,Limit Bending,Lifting Restriction of 10 lbs,Gait Belt above Incisional Area Recommendations To Nursing Amount of Assist Needed 1 Person Assist Discharge Recommendations PT Discharge Recommendations Home with Assistance Transportation Needs at Discharge Private Vehicle
[2020-11-30] MEDS: ACETAMINOPHEN 325 MG TABLET 650 MG PO (15:22)
[2020-11-30 15:48] VITALS: BP 110/67; PULSE 81; RESP 18; TEMP 35.8; O2SAT 94
--- NOTE | 2020-11-30 16:52 | PC.NURSE ---
Met with patient at 16:15 for assessment. Normal skin and hair, no signs of skin lesions. Lymph nodes unremarkable. HEENT unremarkable. Patient uses glasses and states that prescription is current. Patient denies hearing loss. Heart and lung sounds unremarkable. Abdomen soft and non-tender. Patient denies nausea; denies abdominal pain. Patient states that she would like to drink prune juice to make her bowels more regular. Normal range of motion in lower and upper extremities. Patient states that she has pain in lower back but denies pain in other parts of body. Some edema in feet and ankles, non-pitting, patient states that she frequently gets some swelling in feet and ankles. Feet cool to touch, normal capillary refill, normal color.
[2020-11-30 19:31] VITALS: BP 122/64; PULSE 81; RESP 18; TEMP 36.4; O2SAT 94
[2020-11-30] MEDS: SENNOSIDES 8.6 MG TABLET 17.2 MG PO (20:55)
[2020-11-30] MEDS: TRAZODONE 50 MG TABLET PO (21:00)
[2020-11-30] MEDS: ATORVASTATIN 20 MG TABLET 10 MG PO (21:00)
[2020-11-30] MEDS: SODIUM CHLORIDE 0.9% FLUSH 10 ML IV (21:01)
[2020-12-01 02:00] VITALS: PULSE 90; O2SAT 91
--- NOTE | 2020-12-01 02:06 | PC.NURSE ---
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 Went to recheck and it was reading 90-91. Had patient use IS and O2 increased to 92. Patient states she does not have any SOB or troubling breathing and will continue IS before going back to bed. Will check patient in 30 min after IS use.
--- NOTE | 2020-12-01 03:17 | PC.NURSE ---
Patient asleep in bed. Rechecked O2 and it was reading 86%. Placed patient on 1L NC and it increased to 91%-92%. O2 increased to 2L and reading was 95%-96%. Will continue 2L NC and recheck patient at 0400.
[2020-12-01] MEDS: PANTOPRAZOLE DR 20 MG TABLET PO (05:45)
[2020-12-01] MEDS: SODIUM CHLORIDE 0.9% FLUSH 10 ML IV (05:46)
[2020-12-01 06:10] VITALS: BP 136/64; PULSE 79; RESP 16; TEMP 36.6; O2SAT 97
[2020-12-01] MEDS: OXYCODONE IR 5 MG TABLET 10 MG PO (06:30)
--- NOTE | 2020-12-01 06:54 | PC.NURSE ---
Patients O2 readings improved to 97% so O2 was discontinued and recheck will be done with change of shift.
[2020-12-01 07:22] VITALS: BP 123/73; PULSE 85; RESP 16; TEMP 36.6; O2SAT 94
--- NOTE | 2020-12-01 07:55 | P.DS_ITS ---
History of Present Illness History of Present Illness Date Patient Seen: 12/01/20 Time Patient Seen: 07:55 Chief complaint: Translaminar Interbody Fusion/Laminotomy Narrative: Patient's pain is been moderate to severe. Patient's pain is currently controlled with pain meds. Denies fever or chills. No nausea or vomiting. Patient does have assistance at home. Discharge Providers Provider Date of admission: 11/29/20 06:11 Discharge Date: 12/01/20 Primary care physician: Abdoul Alexandra MD Consults: 11/29/20 13:51 Consult to Occupational Therapy Evaluate & Treat Comment: Physician Instructions: Evaluate and treat Consult to Physical Therapy Evaluate & Treat Comment: Physician Instructions: Evaluate and Treat Discharge provider: Rangel Mabry PA-C Summary Hospital Course Discharge Diagnosis: 1. Hx of L4-5, L5-S1 laminectomy with residual spinal stenosis. 2. Lumbar spondylolisthesis 3. Spinal stenosis with neurogenic claudication 4. BMI 40.4 Hospital Course: 1. L4-5, L5-S1 Postero-lateral and posterior interbody fusion 2. L4-5, L5-S1 interbody cage placement. 3. L4-5, L5-S1 decompressive laminectomy with bilateral facetecomies 4. L4-5, L5-S1 Posterior segmental instrumentation 5. [place] of bone marrow from iliac crest 6. Utilization of microsurgical technique and operating microscope Same procedure as scheduled: Yes Indications: Patient has been having chronic back pain and worsening lumbar radiculopathy. Patient had previous laminectomy with worsening lower extremity pain weakness and numbness as well as back pain. Patient failed multiple conservative management with worsening pain weakness and numbness in her lower extremity. Patient has been having difficulty performing activity of daily living. After discussing risks benefits of treatment options, patient elected proceed with surgery. Surgeon: Hermila Sanchez Invertebrate Paleontologist: Yanick Ryan Click Yes if Unassisted: No Anesthesia Type: General Operative Notes Closure Type: primary Specimen(s): none sent Prosthetic devices, grafts, tissues, transplants, or devices: Globus revolve screws, Rise cages Applied: catheter Estimated Blood Loss (mL): 100 Patient admitted to the hospital for the above-mentioned procedure. Patient taken to operating room after consent provided. Patient back in her room recovering well as in stable condition. Pain is well managed. Patient has assistance at home. Patient will be discharged home today in stable condition. Status at Discharge Cognitive/behavioral status at discharge: at baseline, oriented Functional status at discharge: uses cane/walker Overall status at discharge: patient is progressing back to baseline Time Spent with Patient Time spent: Less than 30 minutes Exam Vital Signs (past 8 hours): - 12/01/20 02:00 12/01/20 06:10 12/01/20 07:22 Temperature 98 F 97.8 F Pulse Rate 90 79 85 Respiratory Rate 16 16 Blood Pressure 136/64 123/73 Pulse Oximetry 91 97 94 Oxygen Delivery Method Room Air Oxygen Flow Rate 0 Narrative Exam Narrative: 60-year-old female resting comfortably in bedside chair in no apparent distress. Neurovascular status is intact bilateral lower extremities. Dressing is clean, dry and intact. [facility] Social History household members: friend(s) Smoking Status: Former smoker alcohol intake: former Discharge Assessment & Plan Assessment and Plan Assessment: Patient progressing as expected. Plan of Treatment: Limit bending, twisting, lifting. Otherwise activity as tolerated. Pain medicine as directed. Follow-up in 2 weeks. Discharge Plan Discharge Plan Patient Disposition: Home Discharge orders & Medications Prescriptions: New acetaminophen 325 mg Tablet 650 mg PO Q6HR PRN (Reason: Pain, Mild (1-3)) Qty: 60 RF: 0 docusate sodium [DOK] 100 mg Capsule 100 mg PO BID Qty: 20 RF: 0 oxycodone 5 mg Tablet 10 mg PO Q3HR PRN (Reason: Pain, Severe (7-10)) Qty: 60 RF: 0 hydroxyzine pamoate 25 mg Capsule 25 mg PO Q4HR PRN (Reason: Nausea And Vomiting) Qty: 30 RF: 0 Continued trazodone 50 mg tablet 50 mg PO BEDTIME RF: 0 metoprolol succinate 50 mg tablet extended release 24 hr 50 mg PO DAILY RF: 0 meloxicam 15 mg tablet 15 mg PO DAILY RF: 0 simvastatin 20 mg tablet 20 mg PO DAILY RF: 0 omeprazole 20 mg capsule,delayed release(DR/EC) 20 mg PO DAILY RF: 0 hydrochlorothiazide 12.5 mg tablet 12.5 mg PO DAILY RF: 0 Discontinued oxycodone-acetaminophen 7.5-325 mg tablet 1 tab PO Q4H PRN (Reason: Pain, Severe) RF: 0 Medication counseling provided by Pharmacist: No Follow up/Referrals: Hermila Sanchez MD [Physician] - (2 weeks) Abdoul Alexandra MD [Primary Care Provider] - Diet/Activity/Treatments Activity: Limit bending, twisting, lifting Cold/Heat Therapy: Apply ice to back as needed Skin/Wound/Dressing Care Report to your healthcare provider any signs of infection, such as:: chills, fever, increased pain, unusual drainage and unusual redness Dressing: Keep clean and dry Visit Report/Discharge Packet Instructions: DI for Heart Failure, DI for Prescription Opioid Use, DI for Transforaminal Lumbar Interbody Fusion Stand Alone Forms: Surgery Discharge Discharge Data Primary Care Provider: Abdoul Alexandra Quality VTE Deep Vein Thrombosis/Pulmonary Embolism Present on Admission: No
[2020-12-01] MEDS: OXYCODONE ER 10 MG TAB PO (09:04)
[2020-12-01] MEDS: hydroCHLOROthiazide 25 MG TABLET 12.5 MG PO (09:04)
[2020-12-01 09:05] VITALS: BP 123/73
[2020-12-01] MEDS: DOCUSATE 100 MG CAPSULE PO (09:05)
[2020-12-01] MEDS: METOPROLOL ER 50 MG TABLET PO (09:05)
--- NOTE | 2020-12-01 09:40 | PT.IPTN ---
Current Diagnoses Spondylolisthesis, lumbar region (11/29/20) Spinal stenosis, lumbar region with neurogenic claudication (11/29/20) Postlaminectomy syndrome, not elsewhere classified (11/29/20) Surgery Performed Operation Date: 11/29/20 07:45 Actual Procedures p L4-5, L5-S1 TLIF w/posterior instrumentation(Not Applicable) - Hermila Sanchez MD Physical Therapy Treatment Note M2 PT-IP Current Condition Start: 11/29/20 16:14 Freq: NEEDED Status: Active Protocol: Document 11/29/20 16:54 AW (Rec: 11/29/20 17:20 AW [id number]) Physical Therapy Current Condition Current Condition Evaluation Date 11/29/20 Treatment Diagnosis s/p L4-S1 TLIF; difficulty in walking Onset Date 11/29/20 Precautions Lumbar Precautions Log Roll,No Twisting,Limit Bending,Lifting Restriction of 10 lbs,Gait Belt above Incisional Area M3 PT-IP Subjective Start: 11/29/20 16:14 Freq: NEEDED Status: Active Protocol: Document 12/01/20 09:20 SP (Rec: 12/01/20 11:16 SP [id number]) Subjective Physical Therapy Visit Type Type Treatment Note Visit Start Time 09:20 Visit Stop Time 09:40 Total Visit Minutes 20 Notes Ulisses attended and completed caregiver training w/ physical support given throughout tx needed, was able manage his portable O2 tank and provide assist required. Number of MEDIA DEVELOPER Visits 1 Physical Therapy Visit Comments Patient Comments pt is agreeable to do PT Therapy Pain Assessment Pain When Pain Assessed During Mobility Pain Present Pain Present Pain Reported Location low back Intensity 3 Scale Used 3/10 during gait, 10/10 during bed mobility Pain Behaviors Facial Grimacing Pain Management Techniques Re-positioning,Timing of Activity with Medications M4 PT-IP Mobility and Gait Start: 11/29/20 16:14 Freq: NEEDED Status: Active Protocol: Document 12/01/20 09:20 SP (Rec: 12/01/20 11:16 SP [id number]) PT-Bed Mobility Assessment Rolling Type of Rolling Bilateral Level of Assist Standby Assistance Supine to Sit Supine to Sit Standby Assistance Sit to Supine Sit to Supine Minimal Assistance,1 Person Assistance Scooting Scooting to Edge of Bed Standby Assistance PT-Transfer Assessment Sit to and From Stand Sit to and from Stand Contact Guard Assistance, Minimal Assistance,1 Person Assistance,Use of Upper Extremities Equipment Transfer Assistive Device Gait Belt,Front Wheeled Walker Orthotic/Prosthetic Devices or Brace: No Transfers Transfer Destination Bed,Chair Transfer Technique ambulated using FWW Transfer Ability Level of Assist Standby Assistance,Use of Upper Extremities Comments Mobility Comments Pt seated in chair when arrived. Ulisses donned gait belt. Sit> stand from chair up on 2nd attempt requiring Alcira using FWW, cued for quad facilitation full upright stance. ONce standing only needed SBA. Ambulate into hallway using FWW SBA to stairs and back. Completed stairs 3 steps ascend/descend L HR BUE CGA good step to sequencing. Sit>supine Alcira for BLe support into bed, occasional cues for trunk alignment for self center, no rails. Supine> R LR>sit>scoot to EOB sBA, Sit>stand sBA from EOB using FWW 1 UE bed/ other onFWW. SPT then good reach back descent in tochair sBA. Instructed 4 sit<> stands to continue perform at home for strengthening activity sBA from chair using BUE. Pt had call light and all needs inreach before left. Ulisses in room. Gait Assessment Gait Gait Assistance Required: Standby Assistance Distance (Feet) 200 Able to Maintain Weight Bearing Status Yes During Gait Assistive Devices Assistive Device Gait Belt,Front Wheeled Walker Orthotic/Prosthetic Devices or Brace: No Gait Deviations General Gait Pattern Decreased Stride Length, Decreased Feet Clearance Factors Limiting Gait Function Factors Limiting Gait Function Decreased Activity Tolerance, Decreased Strength,Limited Range of Motion,Pain,Poor Balance Comments Gait Comments Please see mobility comments Stair Climbing Assessment Evaluation Level of Assist On Stairs Contact Guard Assistance,1 Person Assistance Devices Stair Climbing Assistive Devices Left Railing Technique/Endurance Stair Climbing Direction Ascend and Descend Stair Climbing Technique Step to Step Number of Steps Climbed 3 Stair Climbing Set # Repetitions (reps) 1 Comments Stair Climbing Comments see mobility comments PT-Balance Assessment Sitting Balance and Reactions Static Sitting Balance Ability Good Dynamic Sitting Balance Ability Good Standing Balance and Reactions Static Standing Balance Ability Fair Dynamic Standing Balance Ability Fair Device Used FWW M5 PT-IP Objective Assessments Start: 11/29/20 16:14 Freq: NEEDED Status: Active Protocol: Document 11/29/20 16:54 AW (Rec: 11/29/20 17:20 AW [id number]) Orientation Orientation/Cognition Level of Alertness Alert Orientation Name,Day of Week,Place, Situation Language Function Ability No Deficits Noted Safety Awareness Understands Safety Issues Memory Description No Deficits Noted Comments Pt able to recall 3/3 precautions without prompts. Gross Range of Motion Lower Extremity ROM Assessment Within Functional Limits Strength Lower Extremity Strength Assessment Bilaterally Impaired Comments Strength Comments RLE 4/5 LLE 4-/5 Sensation Assessment Sensation Gross Sensation Right LE Impaired,Left LE Impaired Light Touch Impaired Sensation Description Numbness Comments Sensation Comments Pt reported numb anterior right thigh and dull light touch sensation on dorsal surfaces of both feet. Muscle Tone Muscle Tone WNL Yes M6 PT-IP Treatment Start: 11/29/20 16:14 Freq: NEEDED Status: Active Protocol: Document 12/01/20 09:20 SP (Rec: 12/01/20 11:16 SP [id number]) Physical Therapy Treatment Exercises Exercises Ankle Pumps Other Treatments Other Treatment Performed 4 sit<> stands from chair, see mobility comments details. good hip hinge w/ straight back performance M7 PT-IP Assessment and Plan Start: 11/29/20 16:14 Freq: NEEDED Status: Active Protocol: Document 12/01/20 09:20 SP (Rec: 12/01/20 11:16 SP [id number]) PT Summary Assessment and Plan Potential Rehabilitation Potential Good Status of Condition at Evaluation Evolving Summary Impairments Pain,ROM,Strength,Balance, Coordination,Sensation,Tone, Cognition,Bed Mobility, Transfers,Gait,Activity Tolerance Progress Towards Goals Progressing Toward Goals,Slow Progress due to Pain,Slow Progress due to Activity Tolerance Assessment Summary Completed caregiver training with Ulisses. Pt requires Alcira for LEs into bed sit>supine and Min A x1 rep initial sit> stand all rest sBA using FWW. Complete gait SBA w/ FWW and stairs CGA. Pt is ok to return home with Ulisses to assist her as needed when medically cleared. Goals Bed Mobility Goal Standby Assistance Transfer Goal Standby Assistance,Front Wheeled Walker,Four Wheeled Walker Gait Goal Standby Assistance,Front Wheel Walker,Four Wheel Walker Gait Distance 150 Other Goals - up/down 2 steps with L rail ascending SBA Days to Meet Goals 5 Frequency of Treatment Frequency Of Treatment Twice a Day Treatment Plan Physical Therapy Treatment Plan Bed Mobility Training,Transfer Training,Gait Training, Therapeutic Exercise,Balance Retraining,Post Op Education, Discharge Planning,Hot or Cold Pack,Neuromuscular Re-ed Other Recommendations and Next Treatment gait using LRAD, sit<>stands Focus Precautions Lumbar Precautions Log Roll,No Twisting,Limit Bending,Lifting Restriction of 10 lbs,Gait Belt above Incisional Area Recommendations To Nursing Amount of Assist Needed Standby Assistance Discharge Recommendations PT Discharge Recommendations Home with Assistance Equipment Needed for Home Before Pt acquired FWW from neighbor Discharge to use at home instead of 4WW for now. Transportation Needs at Discharge Private Vehicle
--- NOTE | 2020-12-01 10:21 | OT.IP.TRT ---
Current Diagnoses Spondylolisthesis, lumbar region (11/29/20) Spinal stenosis, lumbar region with neurogenic claudication (11/29/20) Postlaminectomy syndrome, not elsewhere classified (11/29/20) Surgery Performed Operation Date: 11/29/20 07:45 Actual Procedures p L4-5, L5-S1 TLIF w/posterior instrumentation(Not Applicable) - Hermila Sanchez MD Occupational Therapy Treatment Note M2 OT-IP Current Condition Start: 11/30/20 12:59 Freq: Status: Active Protocol: Document 11/30/20 09:55 [facility] (Rec: 11/30/20 13:16 [facility] [id number]) Occupational Therapy Current Condition Current Condition Evaluation Date 11/30/20 Treatment Diagnosis S/p L4-S1 TLIF Post Operative Precautions Lumbar Precautions Log Roll,No Twisting,Limit Bending,Lifting Restriction of 10 lbs,Gait Belt above Incisional Area M3 OT- IP Subjective and Pain Start: 11/30/20 12:59 Freq: Status: Active Protocol: Document 12/01/20 09:54 [facility] (Rec: 12/01/20 11:25 [facility] [id number]) OT- Subjective Occupational Therapy Visit Type Visit Start Time 09:54 Visit Stop Time 10:21 Total Visit Minutes 27 Occupational Therapy Visit Comments Patient Comments Pt agreed to shower and pt's in the room for caregiver training. Patient/Caregiver Goals To go home. OT Pain Assessment Pain When Pain Assessed During Mobility Pain Present Pain Present Pain Reported Location low back Intensity 5 Scale Used Numeric (0 - 10) M4 OT- IP ADL's Start: 11/30/20 12:59 Freq: Status: Active Protocol: Document 12/01/20 09:54 [facility] (Rec: 12/01/20 11:25 [facility] [id number]) OT ADL-Grooming General Evaluation Grooming Ability Standby Assistance OT ADL-Dressing General Eval Lower Body Dressing Ability Contact Guard Assistance Comments OT Dressing Comments Pt able to use the grain unloader to assist for all LB dressing needs. CGA to stand with FWW while pt able to slip on her slippers. Pt not wanting to sit back down in order to get her slippers on. OT ADL-Toileting Comments OT Toileting Comments Pt states unable to find the toilet paper aid at home, to either order one ro just have Ulisses assist. Pt would benefit from a BSC as at time needing MODA to stand or heavy use of grab bar to pull up. Educated to pt best to push up from surfaces and scoot forwards more before trying to come up to stand. OT ADL-Bathing Bathing Type Bathing Type Shower General Evaluation Bathing Ability Moderate Assistance,Maximal Assistance Areas Needing Assistance Wash/Dry Back,Wash/Dry Perineal Area,Wash/Dry Lower Extremities Comments OT Bathing Comments Educated to pt once her balance is a little better to try to use a thin long towel to assist for pericare needs of washing and drying. M6 OT- IP Functional Cognition Start: 11/30/20 12:59 Freq: Status: Active Protocol: Document 12/01/20 09:54 [facility] (Rec: 12/01/20 11:25 [facility] [id number]) Cognitive Factors Limiting Selfcare Function Cognitive Ability Level of Alertness Alert Patient Orientation Name,Place,Situation Attention Span Ability Capable of Focused Attention, Capable of Sustained Attention Ability to Follow Commands Able to Follow One Step Commands Safety Awareness Decreased Recall of Precautions,Decreased Ability to Apply Precautions Cognitive Comments Cognitive Assessment Comments Pt still needs reminders for back precautions. VC to scoot forwards first and get her feet underneath her and push up with her arms to stand from surface sitting on. M7 OT- IP Mobility and Balance Start: 11/30/20 12:59 Freq: Status: Active Protocol: Document 12/01/20 09:54 [facility] (Rec: 12/01/20 11:25 [facility] [id number]) OT-Transfer Assessment Sit to and From Stand Sit to and from Stand Minimal Assistance,Moderate Assistance,1 Person Assistance Transfers Transfer Ability Standby Assistance Technique Transfer Destination Chair,Shower Stall Transfer Technique Stand Step Pivot Devices Transfer Assistive Devices Gait Belt,Front Wheeled Walker Comments Mobility Comments Educated to hold the FWW especially when pt trying to push on the FWW to get up. Once on her feet, pt is SBA with FWW for level surfaces. OT- Balance Assessment Sitting Balance and Reactions Static Sitting Balance Ability Good Dynamic Sitting Balance Ability Fair Standing Balance and Reactions Static Standing Balance Ability Fair M8 OT- IP Objective Assessments Start: 11/30/20 12:59 Freq: Status: Active Protocol: Document 11/30/20 09:55 [facility] (Rec: 11/30/20 13:16 [facility] [id number]) OT Gross Range of Motion Upper Extremity Range of Motion Assessment Within Functional Limits OT-Muscle Tone Assessment Muscle Tone WNL Yes M9 OT- IP Assessment and Plan Start: 11/30/20 12:59 Freq: Status: Active Protocol: Document 12/01/20 09:54 [facility] (Rec: 12/01/20 11:25 [facility] [id number]) OT Summary Assessment and Plan Potential Rehabilitation Potential Good Analytic Complexity at Evaluation Low Summary Progress Towards Goals Progressing Toward Goals Assessment Summary Pt able to shower and has good understanding for how to assist the pt for ADl needs. Pt looking to get BSC to increase ease to come to stand from the toilet, toilet paper aid , and suggested if not able to use her walk in shower as unable to get a shower chair in there - may be best to use the tub/shower and get a tub bench instead. Pt looking to go home with her when medically stable . Goals Grooming Goal Independent Dressing Goal Independent Toileting Goal Independent Bathing Goal Independent Toilet Transfer Goal Independent Shower Transfer Goal Independent Patient/Caregiver Education Goal Demonstrate Post-Op Precautions,Caregiver Independent Assisting Patient Days to Meet Goals 6 Frequency of Treatment Frequency Of Treatment Once a Day Treatment Plan OT Treatment Plan ADL Training,Functional Cognition Training,Functional Mobility,Patient/Family Education,Discharge Planning Discharge Recommendations OT Discharge Recommendations Home with Assistance Home Equipment Needs FWW, BSC, shower chair/tub bench Transportation Needs at Discharge Private Vehicle
--- NOTE | 2020-12-01 11:13 | PC.NURSE ---
Pt is dressed and ready for discharge home with Spouse Ulisses. HL has been removed and dsg to back has been changed to a Coversite. Pt has showered with OT and worked with PT and has been cleared. Went over d/c instructions with Pt and Spouse - discussed d/c meds, time of last dose, reviewed stroke education, reminded Pt to limit bending, lifting, or twisting. Encouraged fluid intake to prevent constipation or dehydration. Encouraged Pt to taper off pain meds as able. Reminded Pt to not drive while on narcotics. Pt to follow up as already scheduled. Pt and Spouse deny further questions and were taken out via w/c by LOSS PREVENTION MANAGER to POV with all belongings.
--- NOTE | 2020-12-01 11:25 | OT.IP.TRT ---
Current Diagnoses Spondylolisthesis, lumbar region (11/29/20) Spinal stenosis, lumbar region with neurogenic claudication (11/29/20) Postlaminectomy syndrome, not elsewhere classified (11/29/20) Surgery Performed Operation Date: 11/29/20 07:45 Actual Procedures p L4-5, L5-S1 TLIF w/posterior instrumentation(Not Applicable) - Hermila Sanchez MD
== END 2020-12-01 11:17 | disposition home or self-care (01) | DRG 455 ==
PROVIDERS: Admitting Provider Orthopaedic Surgery Orthopaedic Surgery of the Spine; PCP Family Medicine; Referring Provider Family Medicine; Visit Provider Orthopaedic Surgery Orthopaedic Surgery of the Spine
PROC: 0SG00AJ Fusion of Lumbar Vertebral Joint with Interbody Fusion Device, Posterior Approach, Anterior Column, Open Approach (ICD-10-PCS; principal; 2020-11-29 07:45)
DX: M48.062 Spinal stenosis, lumbar region with neurogenic claudication (principal); M43.16 Spondylolisthesis, lumbar region; M96.1 Postlaminectomy syndrome, not elsewhere classified; I10 Essential (primary) hypertension; E78.5 Hyperlipidemia, unspecified
CPT/HCPCS: 72100; 76000; 97116; 97161; 97165; 97530; 97535; C1776; C9290; J0330; J0690; J1100; J1170; J1885; J2250; J2405; J2704; J3010